=== PATIENT | male | born 1960 | race Caucasian/White ===

== ENCOUNTER 2018-10-02 18:59 | Emergency (ER) | payer OTHER ==
[2018-10-02 19:27] VITALS: BP 144/95
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
[2018-10-02] MEDS ORDERED: Naproxen TAB* 250 MG PO ONE ×2 (20:56→21:02)
== END 2018-10-02 21:18 | disposition home or self-care (01) ==
LOC: UCEAST 18:59
DX: S62.623A Displaced fracture of middle phalanx of left middle finger, initial encounter for closed fracture (principal); M25.442 Effusion, left hand; F17.200 Nicotine dependence, unspecified, uncomplicated; V49.40XA Driver injured in collision with unspecified motor vehicles in traffic accident, initial encounter; Y92.9 Unspecified place or not applicable
CPT/HCPCS: 99202; A9270-GY; G0463

== ENCOUNTER 2018-10-10 10:36 | Day surgery (SDC) | payer OTHER ==
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
[~2018-10-10 10:36] MED LIST: Buffered Lidocaine 1% SYRIN* 1 ML/SYRINGE INTRADERM ONE; Lactated Ringers 1000 ML Bag* 1,000 ML IV SCH
[2018-10-10] MEDS ORDERED: ceFAZolin 2 GM PREMIX in ORs 2 GM/50 ML BAG IVPB ONE (10:47)
[2018-10-10] MEDS ORDERED: Dextrose 50% Syringe 50 ML* 25 GM/50 ML SYRINGE ONE (11:11)
[2018-10-10] MEDS ORDERED: Famotidine IV* 10 MG/ML 2 ML (20 mg) ONE (11:11)
[2018-10-10] MEDS ORDERED: fentaNYL* 50 MCG/ML 2 ML VIAL (100 MCG VIAL) ONE (11:48)
[2018-10-10] MEDS ORDERED: Midazolam* 1 MG/ML 2 ML VIAL (2 MG) ONE (11:48)
[2018-10-10] MEDS ORDERED: Propofol* 10 MG/ML 20 ML BTL ONE ×2 (11:49)
[2018-10-10] MEDS ORDERED: Ketorolac INJ* 30 MG/ML 1 ML VIAL ONE (11:49)
[2018-10-10] MEDS ORDERED: Lidocaine 2% PF * 5 ML VIAL ONE (11:49)
[2018-10-10] MEDS ORDERED: Naloxone* 0.4 MG/ML 1 ML VIAL IV PRN (12:37)
[2018-10-10] MEDS ORDERED: DiMENhydriNATE IV* 50 MG/ML VIAL IV PUSH PRN (12:37)
[2018-10-10] MEDS ORDERED: Acetaminophen TAB* 325 MG PO PRN (12:37)
[2018-10-10] MEDS ORDERED: Levalbuterol 0.63MG/3ML NEB* UNIT OF USE INH PRN (12:37)
[2018-10-10] MEDS ORDERED: PROCHLORPERAZINE INJ 5 MG/ML 2 ML VIAL IV PRN (12:37)
[2018-10-10] MEDS ORDERED: Ondansetron INJ* 2 MG/ML VIAL IV PRN (12:37)
[2018-10-10] MEDS ORDERED: HYDROcodone/ACETAMIN 5-325 MG* 1 TAB PO PRN (12:37)
[2018-10-10] MEDS ORDERED: Ondansetron INJ* 2 MG/ML VIAL ONE (12:50)
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
[2018-10-10 14:34] VITALS: BP 138/84
== END 2018-10-10 14:51 | disposition home or self-care (01) ==
LOC: OREAST 10:36
PROVIDERS: ATTEND Orthopaedic Surgery
DX: S62.613A Displaced fracture of proximal phalanx of left middle finger, initial encounter for closed fracture (principal); F32.9 Major depressive disorder, single episode, unspecified; V49.9XXA Car occupant (driver) (passenger) injured in unspecified traffic accident, initial encounter; Y92.9 Unspecified place or not applicable; E10.9 Type 1 diabetes mellitus without complications; Z79.4 Long term (current) use of insulin; Z96.41 Presence of insulin pump (external) (internal); Z72.0 Tobacco use
CPT/HCPCS: 76000; C1776; J0690; J1885; J2250; J2405; J2704; J3010